=== PATIENT | female | born 1980 | race African-American/Black ===

== ENCOUNTER 2017-03-23 11:40 | Emergency (ER) | payer MEDICAID ==
[~2017-03-23] VITALS: Ht 162.6 cm; Wt 73.0 kg
[2017-03-23] MEDS ORDERED: ACETAMINOPHEN 650MG/20.3ML UDC PO ONE (12:15)
[2017-03-23 12:38] LABS: BASOPHILS % 0.6 % (0.0-2.0); EOSINOPHILS % 1.7 % (0.0-5.0); HEMATOCRIT. 40.5 % (36.0-48.0); LYMPHOCYTES % 25.4 % (20.0-50.0); MEAN CORPUSCULAR HEMOGLOBIN 33.3 pg (28.0-32.0); MEAN CORPUSCULAR HGB CONC 34.5 g/dL (31.0-37.0); MEAN CORPUSCULAR VOLUME 96.6 fL (81.0-99.0); MEAN PLATELET VOLUME 9.3 fl (7.4-10.4); MONOCYTES % 6.7 % (2.0-8.0); NEUTROPHILS % 65.6 % (40.0-76.0); PLATELET 199 x1000/uL (130-400); RED BLOOD CELL COUNT 4.19 mill/uL (4.2-5.4); RED CELL DISTRIBUTION WIDTH 12.5 % (11.6-14.6); WHITE BLOOD COUNT 6.1 x1000/uL (4.5-11.0)
[2017-03-23 12:43] LABS: CHLORIDE 105 mEq/L (98-107); INDEX HEMOLYSI 1 (1-3); INDEX ICTERIC 1 (1-4); INDEX LIPEMIC 1 (1-3)
[2017-03-23 12:49] LABS: ANION GAP 8; CALCIUM 8.6 mg/dL (8.5-10.1); CARBON DIOXIDE 31 mEq/L (21-32); UREA NITROGEN BLOOD 11 mg/dL (7-21); eGFR > 60 mL/min (>60)
[2017-03-23 14:04] LABS: CLARITY URINE CLOUDY (CLEAR); COLOR URINE YELLOW (YELLOW); GLUCOSE URINE NEGATIVE (NEGATIVE); KETONES URINE NEGATIVE (NEGATIVE); LEUKOCYTE ESTERASE URINE 1+ (NEGATIVE); NITRITE URINE NEGATIVE (NEGATIVE); OCCULT BLOOD URINE NEGATIVE (NEGATIVE); PH URINE >=9.0 (4.5-8.0); PROTEIN URINE NEGATIVE (NEGATIVE); SPECIFIC GRAVITY URINE 1.017 (1.005-1.030)
[2017-03-23 14:10] VITALS: BP 114/65
[2017-03-23 14:29] LABS: HCG SCREEN NEGATIVE
[2017-03-23 14:30] LABS: BACTERIA URINE 1+; RBC URINE NONE SEEN /hpf (0-2); SQUAMOUS EPITHELIAL CELL URINE 1+ /lpf (RARE/1+)
== END 2017-03-23 15:13 | disposition home or self-care (01) ==
LOC: ER 14:42
DX: N39.0 Urinary tract infection, site not specified (principal); F17.210 Nicotine dependence, cigarettes, uncomplicated; Z90.49 Acquired absence of other specified parts of digestive tract
CPT/HCPCS: 36415; 76830; 76856; 80048; 81001; 84703; 85025; 99285; Z7610

== ENCOUNTER 2017-08-26 16:03 | Emergency (ER) | payer MEDICAID ==
[~2017-08-26] VITALS: Ht 165.1 cm; Wt 81.0 kg
[2017-08-27 01:17] LABS: BASOPHILS % 0.3 % (0.0-2.0); EOSINOPHILS % 2.8 % (0.0-5.0); HEMATOCRIT. 39.7 % (36.0-48.0); HEMOGLOBIN. 13.9 g/dL (12.0-16.0); LYMPHOCYTES % 41.4 % (20.0-50.0); MEAN CORPUSCULAR HEMOGLOBIN 33.4 pg (28.0-32.0); MEAN CORPUSCULAR VOLUME 95.5 fL (81.0-99.0); MEAN PLATELET VOLUME 9.2 fl (7.4-10.4); MONOCYTES % 8.6 % (2.0-8.0); NEUTROPHILS % 46.9 % (40.0-76.0); PLATELET 190 x1000/uL (130-400); RED BLOOD CELL COUNT 4.16 mill/uL (4.2-5.4); RED CELL DISTRIBUTION WIDTH 12.9 % (11.6-14.6)
[2017-08-27 01:18] LABS: CHLORIDE 106 mEq/L (98-107)
[2017-08-27 01:28] LABS: CARBON DIOXIDE 26 mEq/L (21-32)
[2017-08-27 01:29] LABS: CLARITY URINE CLOUDY (CLEAR); COLOR URINE YELLOW (YELLOW); KETONES URINE NEGATIVE (NEGATIVE); LEUKOCYTE ESTERASE URINE 2+ (NEGATIVE); NITRITE URINE NEGATIVE (NEGATIVE); OCCULT BLOOD URINE NEGATIVE (NEGATIVE); PH URINE 5.5 (4.5-8.0); PROTEIN URINE NEGATIVE (NEGATIVE); SPECIFIC GRAVITY URINE 1.029 (1.005-1.030)
[2017-08-27 04:14] VITALS: BP 96/59
== END 2017-08-27 04:20 | disposition home or self-care (01) ==
LOC: ER 16:41
DX: N39.0 Urinary tract infection, site not specified (principal); M25.552 Pain in left hip; G89.29 Other chronic pain; M54.9 Dorsalgia, unspecified; F17.200 Nicotine dependence, unspecified, uncomplicated; Z90.49 Acquired absence of other specified parts of digestive tract; Z98.890 Other specified postprocedural states
CPT/HCPCS: 36415; 73502; 80053; 81001; 81025; 85025; 99285

== ENCOUNTER 2018-05-24 22:03 | Emergency (ER) | payer MEDICAID ==
[~2018-05-24] VITALS: Ht 162.6 cm; Wt 79.0 kg
[2018-05-25] MEDS ORDERED: KETOROLAC 60MG/2ML VIAL IM STA (00:14)
[2018-05-25 00:48] LABS: CLARITY URINE CLOUDY (CLEAR); COLOR URINE YELLOW (YELLOW); KETONES URINE NEGATIVE (NEGATIVE); LEUKOCYTE ESTERASE URINE TRACE (NEGATIVE); NITRITE URINE NEGATIVE (NEGATIVE); OCCULT BLOOD URINE NEGATIVE (NEGATIVE); PROTEIN URINE NEGATIVE (NEGATIVE); SPECIFIC GRAVITY URINE 1.013 (1.005-1.030)
[2018-05-25 02:38] VITALS: BP 121/70
== END 2018-05-25 02:38 | disposition home or self-care (01) ==
LOC: ER 22:03
DX: S70.02XA Contusion of left hip, initial encounter (principal); M54.5 Low back pain; Y93.01 Activity, walking, marching and hiking; W10.8XXA Fall (on) (from) other stairs and steps, initial encounter; Y92.89 Other specified places as the place of occurrence of the external cause; F12.90 Cannabis use, unspecified, uncomplicated; F17.210 Nicotine dependence, cigarettes, uncomplicated
CPT/HCPCS: 72100; 73502; 81003; 81025; 96372; 99285; J1885